=== PATIENT | male | born 1985 | race Caucasian/White ===

== ENCOUNTER → 2022-09-21 | Outpatient (CLI) | payer OTHER ==
[~2022-09-21] MED LIST: BPR150TCR PO; FLUT16SP22 NS; HYDR-34 PO; NAPR-243 PO; TRM50T PO
--- NOTE | 2022-09-21 17:17 | Diagnostic Imaging Report ---
EXAMINATION: Right knee radiographs, two views including weightbearing. COMPARISON: None. HISTORY: 37-year-old male, right knee pain. FINDINGS: There is severe patellofemoral compartment joint space loss with [id number] articulation. There is no large knee joint effusion. There are lateral compartment osteophytes. There is no pronounced narrowing of the medial or lateral compartment of the right knee. There is no identified acute fracture. There is no radiopaque foreign body. There is a well-corticated ossification near the anterior tibial tubercle which may reflect sequela of remote prior [place]-Schlatter disease or remote prior injury. IMPRESSION: 1. Severe predominantly patellofemoral compartment arthritis without large knee joint effusion. 2. No identified acute fracture or other acute osseous abnormality. Dictated by: Dictated on workstation # [id number]
== END ==
LOC: RAD 14:12
PROVIDERS: ATTEND Family Medicine
DX: M17.11 Unilateral primary osteoarthritis, right knee (principal)
CPT/HCPCS: 73560